=== PATIENT | female | born 1980 | race Caucasian/White ===

== ENCOUNTER 2018-02-12 20:36 | Emergency (ER) | payer MEDICAID ==
[~2018-02-12] VITALS: Ht 172.7 cm; Wt 72.4 kg
[~2018-02-12 20:36] MED LIST: AMOX/K CLAV875 M1 PO; AMOXICILLIN500 MG PO; BENADRYL 50MG C50 MG PO; LAMICTAL100 M1 PO; MONISTAT1 VA; PREDNISONE20 MG PO; TRAZODONE50 MG PO; ZOFRAN ODT4 MG PO; ZOFRAN4 MG/TAB PO
[2018-02-13 00:05] VITALS: BP 123/72
== END 2018-02-13 00:05 | disposition left against medical advice (07) | DRG 951 ==
LOC: ED 20:36 → LWOBS 02-13 00:05
DX: Z91.19 Patient's noncompliance with other medical treatment and regimen (principal)

== ENCOUNTER 2018-02-17 02:38 | Emergency (ER) | payer MEDICAID ==
[~2018-02-17] VITALS: Ht 172.7 cm; Wt 100.0 kg
[2018-02-17 03:40] LABS: HEMATOCRIT 37.3 % (37.0-47.0); HEMOGLOBIN 11.1 g/dl (12.0-16.0); IMMATURE GRANULOCYTES 0.5 % (0.0-1.0); MEAN CORPUSCULAR HGB 21.5 pG CALC (26.0-32.0); MEAN CORPUSCULAR HGB CONC 29.8 g/L CALC (32.0-36.0); NEUT# 7.2 thou/uL (2.00-7.15); RED BLOOD COUNT 5.16 mill/uL (4.20-5.60); RED CELL DISTRI WIDTH 17.9 % (11.5-15.5)
[2018-02-17 03:41] LABS: URINE BILIRUBIN - DIPSTICK NEGATIVE (NEGATIVE); URINE BLOOD DIPSTICK NEGATIVE (NEGATIVE); URINE COLOR YELLOW; URINE GLUCOSE - DIPSTICK NEGATIVE (NEGATIVE); URINE KETONE NEGATIVE (NEGATIVE); URINE PROTEIN - DIPSTICK NEGATIVE (NEG-TRACE); URINE UROBILINOGEN - DIPSTICK 0.2 E.U./dL (0.2)
[2018-02-17 03:42] LABS: URINE CLARITY CLOUDY; URINE LEUK ESTERASE SMALL (NEGATIVE)
[2018-02-17 03:42] LABS: MEAN CELL VOLUME 72.3 fL CALC (80.0-100.0)
[2018-02-17 03:45] LABS: BARBITURATES NEGATIVE (NEGATIVE); COCAINE NEGATIVE (NEGATIVE); METHADONE NEGATIVE (NEGATIVE); OXCYCODONE NEGATIVE (NEGATIVE); TETRAHYDROCANNABIONOL NEGATIVE (NEGATIVE); TRICYLIC ANTIDEPRESSANTS NEGATIVE (NEGATIVE)
[2018-02-17 03:46] LABS: URINE BACTERIA MANY hpf; URINE NITRITE - DIPSTICK POSITIVE (Negative); URINE RBC 0-2 RBC/hpf (0-5); URINE SQUAMOUS EPITHELIAL CELL MODERATE EPI/hpf (0-FEW)
[2018-02-17 03:52] LABS: ALBUMIN 4.1 g/dL (3.2-5.0); ALKALINE PHOSPHATASE 78 u/l (38-126); ANION GAP 17 (6-22 (CALC)); BILIRUBIN, TOTAL 0.2 mg/dL (0.0-1.4); BUN 9 mg/dL (7-17); BUN/CREATININE RATIO 10 (12-20 (CALC)); CARBON DIOXIDE 27 mmol/l (22-30); CHLORIDE 103 mmol/l (95-108); GFR > 60 ML/MIN (>=60 (CALC)); GFR FOR AFR.AMER. > 60 ML/MIN (>=60 (CALC)); POTASSIUM 3.7 mmol/l (3.5-5.1); SGOT/AST 20 u/l (14-36); SGPT/ALT 28 u/l (9-52); SODIUM 143 mmol/l (137-146)
[2018-02-17] MEDS ORDERED: FLEXERIL PO (04:59)
[2018-02-17] MEDS ORDERED: LORTAB 1010 MG PO (04:59)
[2018-02-17 05:25] VITALS: BP 120/64
== END 2018-02-17 05:25 | disposition home or self-care (01) | DRG 392 ==
LOC: ED 02:38
PROVIDERS: Emergency Medicine
DX: R10.32 Left lower quadrant pain (principal); B96.20 Unspecified Escherichia coli [E. coli] as the cause of diseases classified elsewhere; M79.1 Myalgia